=== PATIENT | male | born 1950 | race Caucasian/White ===

== ENCOUNTER 2018-04-25 08:39 | Emergency (ER) | payer SELFPAY ==
[~2018-04-25] VITALS: Ht 177.8 cm; Wt 81.6 kg
[~2018-04-25 08:39] MED LIST: ADV100/50 INH; AMITRIPTYLINE H10 MG PO; AMOXICILLIN500 MG PO; CITALOPRAM20 M1 PO; ELA25 PO; FLA500 PO; ISORDIL TITRADOS5 MG PO; LAC PO; LEVAQUIN750 MG PO; LORAZEPAM1 MG PO; NICODERM C21 MG/241 TOP; PRIMATENE1 TAB PO; TRAZODONE50 M1 PO
[2018-04-25 09:25] LABS: BASOPHIL % 0.2 % (0-2); PLATELET COUNT 260 x10^3mcL (130-400)
[2018-04-25 09:26] LABS: RED CELL DISTRIBUTION WIDTH 16.2 % (11.5-14.5)
[2018-04-25 09:29] LABS: CALCIUM 9.5 mg/dL (8.5-10.1); CARBON DIOXIDE 32.7 mmol/L (21-32); CHLORIDE SERUM 100 mmol/L (98-107); CREATININE SERUM 0.8 mg/dL (0.7-1.3); GFR1 > 60 mL/min; GLUCOSE SERUM 101 mg/dL (74-106); POTASSIUM SERUM 4.3 mmol/L (3.5-5.1); SODIUM SERUM 139 mmol/L (136-145)
[2018-04-25 09:34] LABS: ALBUMIN 3.6 g/dL (3.4-5.0); ALKALINE PHOSPHATASE 180 U/L (46-116); ALT/SGPT 16 U/L (16-63); AST/SGOT 5 U/L (15-37)
[2018-04-25 09:36] LABS: TOTAL PROTEIN, SERUM 8.4 g/dL (6.4-8.2)
[2018-04-25 10:40] LABS: microscopic required? NO
[2018-04-25 11:08] LABS: urine erythrocyte NEGATIVE (NEGATIVE)
[2018-04-25 11:46] VITALS: BP 138/83
== END 2018-04-25 11:46 | disposition home or self-care (01) ==
LOC: ED 08:39
PROVIDERS: Emergency Medicine
DX: J44.1 Chronic obstructive pulmonary disease with (acute) exacerbation (principal); Z98.890 Other specified postprocedural states
CPT/HCPCS: J2930; J7030; J7613; J7644